=== PATIENT | female | born 1975 | race Caucasian/White ===

== ENCOUNTER → 2022-06-30 11:39 | Outpatient (CLI) | payer OTHER, SELFPAY ==
--- NOTE | 2022-06-30 | DI.CT.S_ITS ---
PROCEDURE: CT ABDOMEN PELVIS W CON INDICATIONS: ABDOMINAL PAIN TECHNIQUE: After the administration of oral and IV contrast, axial sections were acquired from the lung bases to the pubic symphysis. Coronal and sagittal reformats were performed. For radiation dose reduction, the following was used: automated exposure control, adjustment of mA and/or kV according to patient size. COMPARISON: [facility] [place], CR, XR LUMBAR SPINE 2 OR 3 VIEWS, 09/23/2020, 9:47. FINDINGS: Image quality: Excellent. Lung bases: Unremarkable. Heart: No significant findings. ABDOMEN: Liver: Unremarkable. Gallbladder: There are gallstones. Gallbladder is contracted. Biliary ducts: Unremarkable. Pancreas: Unremarkable. Spleen: Unremarkable. Adrenal Glands: Unremarkable. Kidneys and Ureters: Unremarkable. Stomach and Bowel: Stomach, small bowel loops, and colon are normal in caliber. Diverticulosis without acute diverticulitis. There is a large amount of stool in colon. Peritoneum: No abnormal intraperitoneal fluid. No free air. Ventral Wall: No hernia. Abdominal Nodes: No retroperitoneal or mesenteric adenopathy by size criteria. Vessels: Aorta and inferior vena cava are normal in size. PELVIS: Pelvic Organs: Uterus is enlarged and heterogeneous measuring 15.3 cm AP x 15.1 cm transverse x 18.3 cm cephalocaudal. There are multiple uterine fibroids. There is a pole 0.0 x 5.0 cm cyst in the right adnexa, probably arising from the right ovary. The left ovary is not visualized. No left adnexal mass. Bladder: Unremarkable. Pelvic Nodes: No enlarged lymph nodes. Miscellaneous: No inguinal hernias are seen. Bones: Unremarkable. IMPRESSION: 1. Enlarged uterus measuring 15.3 x 5.1 x 18.3 cm. It is most likely caused by multiple large uterine fibroids but malignant neoplasm suggests uterine sarcoma or endometrial cancer invading myometrium cannot be excluded. Recommend pelvic ultrasound or gynecological MRI for further evaluation. 2. A 4 cm right ovarian cyst. This can be evaluated on pelvic ultrasound or MRI. 3. Diverticulosis without acute diverticulitis. 4. Cholelithiasis. 5. A large amount of stool in colon. Dictated by: William Ojeda M.D. on 06/30/2022 at 13:51 Approved by: William Ojeda M.D. on 06/30/2022 at 14:57
== END ==
PROVIDERS: Referring Provider Nurse Practitioner; Visit Provider Nurse Practitioner
DX: R19.03 Right lower quadrant abdominal swelling, mass and lump (principal); K80.20 Calculus of gallbladder without cholecystitis without obstruction; K57.90 Diverticulosis of intestine, part unspecified, without perforation or abscess without bleeding; D25.9 Leiomyoma of uterus, unspecified; N85.2 Hypertrophy of uterus; N83.201 Unspecified ovarian cyst, right side
CPT/HCPCS: 74177; Q9967

== ENCOUNTER → 2022-08-22 06:37 | Outpatient (CLI) | payer OTHER, SELFPAY ==
--- NOTE | 2022-08-22 06:38 | DI.US.S_ITS ---
PROCEDURE: US PELVIC COMPLETE INDICATIONS: Leiomyoma of uterus TECHNIQUE: Real-time scanning was performed of the pelvic organs, with image documentation. Additional endovaginal scanning was necessary due to incomplete visualization of the adnexal and endometrial structures by transabdominal scanning. COMPARISON: [facility], CT, CT ABDOMEN PELVIS W CON, 06/30/2022, 13:27. FINDINGS: Uterus: There is limited characterization of the markedly enlarged uterus by ultrasound. The uterus measures approximately 16.3 x 16.5 x 15.4 cm. The endometrial complex is poorly visualized but measures approximately 10 mm in diameter. There are multiple large uterine fibroids including a right anterior intramural fibroid which measures 8.2 x 6.2 x 6.8 cm, a midline posterior intramural fibroid which measures 9.4 x 8.7 x 9.9 cm, and a midline posterior intramural fibroid which measures 10.8 x 6.7 x 9.4 cm. These are better characterized on the comparison CT of the abdomen and pelvis dated June 30, 2022. Ovaries: The right ovary measures is not visualized. The left ovary measures 2.1 x 2.4 x 1.5 cm, with a calculated ovarian volume of 4.0 cc. The ovaries left ovary has a grossly normal sonographic appearance. There are fewer than 12 follicles in the left ovary. No adnexal masses are seen. Other: No pathologic free abdominal or pelvic fluid. IMPRESSION: 1. Markedly enlarged uterus with multiple uterine fibroids, only some of which are characterized by ultrasound. Gynecologic protocol MRI is recommended to further characterize these findings and evaluate for central necrosis of the multiple large uterine fibroids. Leiomyosarcoma cannot be excluded. 2. Unremarkable left ovary. The right ovary is not visualized. We strive to produce accurate, complete, and clear reports of imaging services. To assist us in improving patient care, this report was composed using standard report templates and voice recognition software. Therefore, it may contain abnormal punctuation, insertions and/or omissions. Occasional wrong-word or sound-alike substitutions may occur. Though we review the report and make efforts to correct it, we do recommend that the report be read carefully in proper context to recognize any text inaccuracies. Dictated by: Joyce Alcala M.D. on 08/22/2022 at 14:33 Approved by: Joyce Alcala M.D. on 08/22/2022 at 14:37
== END ==
LOC: US 06:37
PROVIDERS: PCP Nurse Practitioner; Referring Provider Nurse Practitioner; Visit Provider Nurse Practitioner
DX: D25.1 Intramural leiomyoma of uterus (principal); N85.2 Hypertrophy of uterus
CPT/HCPCS: 76830; 76856

== ENCOUNTER → 2022-10-04 13:14 | Outpatient (CLI) | payer OTHER, SELFPAY ==
--- NOTE | 2022-10-04 | DI.MRI.S_ITS ---
PROCEDURE: MR PELVIS WO/W CON INDICATIONS: Abnormal uterine and vaginal bleeding, unspecified TECHNIQUE: Coronal HASTE, sagittal breath-hold T2 FSE; axial T1 FSE with and without fat saturation through the pelvis. Optional long- and short-axis uterine nonbreath-hold T2 FSE through the uterus. Sagittal or axial dynamic VIBE during administration of contrast. Post-contrast axial or coronal VIBE/2-D FLASH with fat saturation from the iliac crests to the symphysis. Optional diffusion weighted imaging and ADC may be performed. COMPARISON: [facility], US, US PELVIC COMPLETE, 08/22/2022, 6:46. [facility], CT, CT ABDOMEN PELVIS W CON, 06/30/2022, 13:27. FINDINGS: Image quality: Excellent. Uterus: Massively enlarged uterus measuring approximately 18.1 x 11.2 x 8.8 cm. Multiple large uterine fibroids (greater than 10). For example: -Posterior lower uterine segment intramural measuring 10 x 8 x 7.8 cm. -Anterior right fundal intramural measuring 7.2 x 6.8 x 6.7 cm. -Posterior mid intramural measuring 7 x 5.2 x 4.9 cm. -Subserosal fundal fibroid measuring 4.7 cm, (3/22), demonstrates central T2 signal. No suspicious enhancement or restricted diffusion. There are a few small submucosal fibroids. Endometrium measures 0.6 cm. Small nabothian cysts. Adnexa: T2 hyperintense right ovarian cyst measuring 6 cm, (3/2), previously 4.3 cm on 06/30/2022. Small ovarian follicles bilaterally. No suspicious enhancement. Urinary system: Bladder wall is normal in thickness. Distal ureters are non distended. Urethra appears normal in morphology. Nodes and vessels: No pelvic or inguinal adenopathy by size criteria. Iliac vessels are normal in size. Bowel and peritoneum: No pathologic free pelvic fluid. Inferior colon and small bowel loops are normal in caliber. Diverticulosis. Soft tissues: No inguinal hernias. No findings of pelvic floor incompetence in the absence of provocation. Bones: Marrow demonstrates normal overall signal. Small sacral Tarlov cysts. IMPRESSION: 1. Massively enlarged fibroid uterus measuring 18.1 cm in length. A fundal fibroid measuring 4.7 cm demonstrates cystic change. 2. A few small subserosal fibroids. Endometrium measures 0.6 cm. 3. Large T2 hyperintense right ovarian cyst measuring 6 cm. Recommend gynecological consultation. Recommend followed up imaging surveillance with pelvic MRI or CT. This was not well seen on prior ultrasound. Dictated by: Enrico Aguilar M.D. on 10/04/2022 at 15:50 Approved by: Enrico Aguilar M.D. on 10/04/2022 at 16:08
== END ==
PROVIDERS: PCP Nurse Practitioner; Referring Provider Nurse Practitioner; Visit Provider Nurse Practitioner
DX: N93.9 Abnormal uterine and vaginal bleeding, unspecified (principal); D25.1 Intramural leiomyoma of uterus; D25.0 Submucous leiomyoma of uterus; D25.2 Subserosal leiomyoma of uterus; N88.8 Other specified noninflammatory disorders of cervix uteri; N85.2 Hypertrophy of uterus; N83.201 Unspecified ovarian cyst, right side
CPT/HCPCS: 72197